=== PATIENT | female | born 1985 | race Two or more races ===

== ENCOUNTER 2017-12-03 20:08 | Emergency (ER) | payer OTHER ==
[~2017-12-03] VITALS: Ht 162.6 cm; Wt 71.6 kg
[~2017-12-03 20:08] MED LIST: CHRO1TAB7 PO; CLOT15CR5 TOP; COL100C PO; INSU100C10 SQ; LANTUS SQ; PHEN-824 PO
[2017-12-03] MEDS ORDERED: ACET1TAB12 PO (21:40)
[2017-12-03 22:46] VITALS: BP 119/71
== END 2017-12-03 22:50 | disposition home or self-care (01) ==
LOC: ER 20:08
DX: M25.531 Pain in right wrist (principal); J45.909 Unspecified asthma, uncomplicated; E11.9 Type 2 diabetes mellitus without complications; G89.29 Other chronic pain; Z87.442 Personal history of urinary calculi; Z90.49 Acquired absence of other specified parts of digestive tract; Z56.0 Unemployment, unspecified; Z88.8 Allergy status to other drugs, medicaments and biological substances; Z88.1 Allergy status to other antibiotic agents; Z91.013 Allergy to seafood; Z91.040 Latex allergy status; Z79.4 Long term (current) use of insulin; Z79.899 Other long term (current) drug therapy
CPT/HCPCS: 29125; 73110; 99284

== ENCOUNTER 2018-08-15 11:50 | Emergency (ER) | payer MEDICAID, OTHER ==
[~2018-08-15] VITALS: Ht 162.6 cm; Wt 86.0 kg
[~2018-08-15 11:50] MED LIST changes: +ACET1TAB12 PO; +METO-292 PO
[2018-08-15 13:16] LABS: URINE HCG NEGATIVE (NEG)
[2018-08-15 14:08] LABS: BASOPHILS # (AUTO) 0.1 X10'3 (0-0.2); BASOPHILS % (AUTO) 0.4 % (0-1); EOSINOPHILS # (AUTO) 0.3 X10'3 (0-0.9); HEMATOCRIT 42.1 % (35.0-45.0); HEMOGLOBIN 13.6 g/dl (12.0-16.0); LYMPHOCYTES # (AUTO) 3.8 X10'3 (1.1-4.8); LYMPHOCYTES % (AUTO) 24.2 % (21-51); MEAN CORPUSCULAR HEMOGLOBIN 26.7 PG (27.0-31.0); MEAN CORPUSCULAR HGB CONC 32.3 % (33.0-36.5); MEAN CORPUSCULAR VOLUME 82.9 FL (78-98); MEAN PLATELET VOLUME 8.7 FL (7.4-10.4); MONOCYTES # (AUTO) 0.7 X10'3 (0-0.9); MONOCYTES % (AUTO) 4.5 % (2-12); NEUTROPHILS # (AUTO) 10.7 X10'3 (1.8-7.7); NEUTROPHILS % (AUTO) 68.9 % (42-75); PLATELET COUNT 372 X10'3 (140-440); RED BLOOD COUNT 5.08 X10'6 (4.20-5.60); WHITE BLOOD COUNT 15.5 X10'3 (4.5-11.0)
[2018-08-15 14:23] LABS: ALANINE AMINOTRANSFERASE 18 U/L (12-78); ALBUMIN 3.6 G/DL (3.4-5.0); ALKALINE PHOSPHATASE 98 IU/L (46-116); ANION GAP 10 (8-16); ASPARTATE AMINO TRANSFERASE 11 U/L (10-37); BILIRUBIN,TOTAL 0.2 MG/DL (0.1-1.0); BLOOD UREA NITROGEN 4 MG/DL (7-18); BUN/CREATININE RATIO 5.9 (6.6-38.0); CALCIUM 9.4 MG/DL (8.5-10.1); CHLORIDE 104 MMOL/L (99-107); CREATININE 0.68 MG/DL (0.40-0.90); GLUCOSE 88 MG/DL (70-104); MAGNESIUM 1.8 MG/DL (1.5-2.4); SODIUM 142 MMOL/L (135-145); TOTAL CARBON DIOXIDE 28.2 MMOL/L (24-32); TOTAL PROTEIN 7.2 G/DL (6.4-8.2); eGFR > 90 ML/MIN
[2018-08-15 14:27] LABS: POTASSIUM 2.6 MMOL/L (3.5-5.1)
[2018-08-15] MEDS: potassium Cl 20 mEq SR tablet PO STA (14:45)
[2018-08-15] MEDS ORDERED: potassium 10mEq/100ml NS w/LIDOcaine (10mg/bag) IV SCH (16:00)
[2018-08-15] MEDS: magnesium oxide 400mg tablet PO ONE (16:21)
[2018-08-15] MEDS: ondansetron 4mg rapidly disintigrating tab PO ONE (16:22)
[2018-08-15] MEDS: potassium Cl 20 mEq SR tablet PO ONE (16:22)
[2018-08-15] MEDS: HYDROcodone/acetaminophen 5mg/325mg tablet PO ONE (16:23)
[2018-08-15 16:30] VITALS: BP 128/92
[2018-08-15] MEDS ORDERED: ONDA4TAB12 PO (16:45)
[2018-08-15] MEDS ORDERED: POTA10TA19 PO (16:45)
[2018-08-15] MEDS ORDERED: CYCL-1 PO (16:45)
== END 2018-08-15 17:04 | disposition home or self-care (01) ==
LOC: ER 11:50
DX: S00.83XA Contusion of other part of head, initial encounter (principal); E10.649 Type 1 diabetes mellitus with hypoglycemia without coma; M62.838 Other muscle spasm; J45.909 Unspecified asthma, uncomplicated; Z79.4 Long term (current) use of insulin; Z88.6 Allergy status to analgesic agent; Z88.1 Allergy status to other antibiotic agents; Z91.040 Latex allergy status; Z88.8 Allergy status to other drugs, medicaments and biological substances; Z91.013 Allergy to seafood; Z79.899 Other long term (current) drug therapy; Z87.442 Personal history of urinary calculi; Z90.49 Acquired absence of other specified parts of digestive tract; Z98.890 Other specified postprocedural states; Z90.89 Acquired absence of other organs; Z56.0 Unemployment, unspecified; Z98.84 Bariatric surgery status; W01.198A Fall on same level from slipping, tripping and stumbling with subsequent striking against other object, initial encounter; Y93.89 Activity, other specified; Y92.89 Other specified places as the place of occurrence of the external cause; Y99.8 Other external cause status
CPT/HCPCS: 36415; 70450; 80053; 81025; 82948; 83735; 85025; 99284; J3480

== ENCOUNTER 2018-10-21 16:15 | Emergency (ER) | payer BC ==
[~2018-10-21] VITALS: Ht 160 cm; Wt 88.0 kg
[~2018-10-21 16:15] MED LIST changes: +CYCL-1 PO; +ONDA4TAB12 PO
[2018-10-21 17:45] VITALS: BP 140/107
--- NOTE | 2018-10-21 17:46 | NUR ---
CHECKED PT'S VS SINCE PT HAS BEEN WAITING MORE THAN 1 HOUR. VS DOCUMENTED
[2018-10-21] MEDS ORDERED: HYDROcodone/acetaminophen 5mg/325mg tablet PO ONE (18:45)
[2018-10-21] MEDS ORDERED: ondansetron 4mg rapidly disintigrating tab PO ONE (18:45)
[2018-10-21] MEDS ORDERED: ACET-3067 PO (19:15)
== END 2018-10-21 19:35 | disposition home or self-care (01) ==
LOC: ER 16:15
DX: S09.90XA Unspecified injury of head, initial encounter (principal); R11.2 Nausea with vomiting, unspecified; M54.2 Cervicalgia; J45.909 Unspecified asthma, uncomplicated; E11.9 Type 2 diabetes mellitus without complications; G89.29 Other chronic pain; M54.9 Dorsalgia, unspecified; Z90.49 Acquired absence of other specified parts of digestive tract; Z56.0 Unemployment, unspecified; Z88.8 Allergy status to other drugs, medicaments and biological substances; Z88.6 Allergy status to analgesic agent; Z88.1 Allergy status to other antibiotic agents; Z91.040 Latex allergy status; Z91.013 Allergy to seafood; Z79.4 Long term (current) use of insulin; W18.30XA Fall on same level, unspecified, initial encounter; Y93.89 Activity, other specified; Y92.89 Other specified places as the place of occurrence of the external cause; Y99.8 Other external cause status
CPT/HCPCS: 70450; 99284

== ENCOUNTER 2018-12-05 11:07 | Emergency (ER) | payer BC, OTHER ==
[~2018-12-05] VITALS: Ht 162.6 cm; Wt 88.5 kg
[2018-12-05 12:17] LABS: BASOPHILS # (AUTO) 0.1 X10'3 (0-0.2); BASOPHILS % (AUTO) 0.4 % (0-1); EOSINOPHILS % (AUTO) 0.4 % (0-6); HEMATOCRIT 41.8 % (35.0-45.0); HEMOGLOBIN 13.6 g/dl (12.0-16.0); LYMPHOCYTES # (AUTO) 1.2 X10'3 (1.1-4.8); LYMPHOCYTES % (AUTO) 9.7 % (21-51); MEAN CORPUSCULAR HEMOGLOBIN 25.9 PG (27.0-31.0); MEAN CORPUSCULAR HGB CONC 32.4 g/dL (33.0-36.5); MONOCYTES # (AUTO) 0.5 X10'3 (0-0.9); MONOCYTES % (AUTO) 4.5 % (2-12); NEUTROPHILS # (AUTO) 10.2 X10'3 (1.8-7.7); PLATELET COUNT 309 X10'3 (140-440); RED BLOOD COUNT 5.22 X10'6 (4.20-5.60); RED CELL DISTRIBUTION WIDTH 14.9 % (11.5-14.5)
[2018-12-05 12:21] LABS: CLARITY,URINE SLIGHTLY CLOUDY (Clear); COLOR,URINE STRAW (Yellow); GLUCOSE, URINE >=1000 mg/dl (Neg); KETONES,URINE NEGATIVE (Neg); LEUKOCYTE ESTERASE ,URINE NEGATIVE (Neg); NITRITES, URINE NEGATIVE (Neg); OCCULT BLOOD,URINE NEGATIVE (Neg); PROTEIN,URINE NEGATIVE (Neg); UROBILINOGEN,URINE 0.2 E.U/dL (0.2-1.0)
[2018-12-05 12:23] LABS: URINE HCG NEGATIVE (NEG)
[2018-12-05 12:24] LABS: UA COLLECTION TYPE CLN CATCH MIDSTREAM
[2018-12-05 12:27] LABS: INR 0.9 INR; PROTHROMBIN TIME 9.5 SECONDS (9.0-12.0)
[2018-12-05 12:31] LABS: BACTERIA,URINE 4+ /HPF (Neg); RBC,URINE NONE SEEN /HPF (0-2); WBC,URINE 0-4 /HPF (0-4)
[2018-12-05 12:31] LABS: ALANINE AMINOTRANSFERASE 61 U/L (12-78); ALBUMIN 3.4 G/DL (3.4-5.0); ALBUMIN/GLOBULIN RATIO 0.9 (1.1-1.5); ALKALINE PHOSPHATASE 159 IU/L (46-116); ANION GAP 6 (8-16); ASPARTATE AMINO TRANSFERASE 60 U/L (10-37); BILIRUBIN,TOTAL 0.2 MG/DL (0.1-1.0); BLOOD UREA NITROGEN 5 MG/DL (7-18); BUN/CREATININE RATIO 6.3 (6.6-38.0); CHLORIDE 101 MMOL/L (99-107); GLUCOSE 378 MG/DL (70-104); LIPASE 192 U/L (73-393); POTASSIUM 4.8 MMOL/L (3.5-5.1); SODIUM 134 MMOL/L (135-145); TOTAL CARBON DIOXIDE 27.4 MMOL/L (24-32); TOTAL PROTEIN 7.2 G/DL (6.4-8.2); eGFR 82 ML/MIN
[2018-12-05 12:32] LABS: SQUAMOUS EPITHELIAL CELL,UR MANY /LPF (FEW)
[2018-12-05] MEDS ORDERED: normal saline 1000ML IV soln IVB ONE (13:10)
[2018-12-05] MEDS ORDERED: ondansetron/PF 4mg/2ml inj IV ONE ×2 (13:10→15:00)
[2018-12-05] MEDS ORDERED: morphine 4 MG/ML inj SYRINge IV PRN (13:10)
--- NOTE | 2018-12-05 13:25 | NUR ---
AMBULATORY TO ER #[id number] WITH C/O RIGHTSIDE ABD PAIN AND CONSTIPATION X 3 DAYS. STATES HX CONSTIPATION WITH PAINFUL, BLACK STOOL 2 DAYS AGO. HX MULTIPLE ABD SURGERIES, INCLUDING HERNIA REPAIRS AND GASTRIC BYPASS. ABD SOFT WITH STABBING PAIN.
[2018-12-05 13:47] VITALS: BP 124/80
[2018-12-05] MEDS ORDERED: HYDROcodone/acetaminophen 5mg/325mg tablet PO ONE (15:00)
== END 2018-12-05 15:38 | disposition home or self-care (01) ==
LOC: ER 11:07
DX: R10.11 Right upper quadrant pain (principal); E11.65 Type 2 diabetes mellitus with hyperglycemia; R11.2 Nausea with vomiting, unspecified; J45.909 Unspecified asthma, uncomplicated; G89.29 Other chronic pain; Z90.49 Acquired absence of other specified parts of digestive tract; Z90.89 Acquired absence of other organs; Z88.1 Allergy status to other antibiotic agents; Z88.6 Allergy status to analgesic agent; Z91.018 Allergy to other foods; Z88.8 Allergy status to other drugs, medicaments and biological substances; Z91.013 Allergy to seafood; Z79.4 Long term (current) use of insulin; Z79.899 Other long term (current) drug therapy; Z56.0 Unemployment, unspecified
CPT/HCPCS: 36415; 80053; 81001; 81025; 82948; 83690; 85025; 85610; 96361; 96374; 96375; 96376; 99283; J2270; J2405; J7030

== ENCOUNTER 2019-06-07 12:17 | Emergency (ER) | payer BC, OTHER ==
[~2019-06-07] VITALS: Ht 160 cm; Wt 86.4 kg
[2019-06-07] MEDS ORDERED: ketorolac tromethamine 15mg/ml inj. IV ONE (13:05)
[2019-06-07] MEDS ORDERED: normal saline 1000ML IV soln IVB ONE (13:05)
[2019-06-07] MEDS ORDERED: proCHLORperazine 10 MG/2 ml inj IV ONE (13:05)
[2019-06-07] MEDS ORDERED: diphenhydrAMINE 25mg capsule PO ONE (13:10)
[2019-06-07] MEDS ORDERED: ketorolac trometh. 30mg/ml inj. IM ONE (13:55)
[2019-06-07 14:39] VITALS: BP 172/116
== END 2019-06-07 14:41 | disposition home or self-care (01) ==
LOC: ER 12:18
DX: F07.81 Postconcussional syndrome (principal); J45.909 Unspecified asthma, uncomplicated; E11.9 Type 2 diabetes mellitus without complications; G89.29 Other chronic pain; F41.9 Anxiety disorder, unspecified; Z90.49 Acquired absence of other specified parts of digestive tract; Z98.890 Other specified postprocedural states; Z56.0 Unemployment, unspecified; Z88.1 Allergy status to other antibiotic agents; Z91.040 Latex allergy status; Z88.6 Allergy status to analgesic agent; Z91.013 Allergy to seafood; Z79.899 Other long term (current) drug therapy; Z79.4 Long term (current) use of insulin; V89.2XXA Person injured in unspecified motor-vehicle accident, traffic, initial encounter; Y93.89 Activity, other specified; Y92.488 Other paved roadways as the place of occurrence of the external cause; Y99.8 Other external cause status
CPT/HCPCS: 96372; 99283; J1885; Q0163

== ENCOUNTER 2019-08-07 09:52 | Emergency (ER) | payer SELFPAY ==
[~2019-08-07] VITALS: Ht 162.6 cm; Wt 94.0 kg
[2019-08-07 11:35] LABS: URINE HCG NEGATIVE (NEG)
[2019-08-07 11:43] LABS: BASOPHILS # (AUTO) 0.1 X10'3 (0-0.2); BASOPHILS % (AUTO) 0.6 % (0-1); EOSINOPHILS % (AUTO) 0 % (0-6); HEMOGLOBIN 12.7 g/dl (12.0-16.0); LYMPHOCYTES # (AUTO) 0.8 X10'3 (1.1-4.8); LYMPHOCYTES % (AUTO) 8.1 % (21-51); MEAN CORPUSCULAR HEMOGLOBIN 27.7 PG (27.0-31.0); MEAN CORPUSCULAR HGB CONC 32.5 g/dL (33.0-36.5); MEAN CORPUSCULAR VOLUME 85.2 FL (78-98); MEAN PLATELET VOLUME 7.7 FL (7.4-10.4); MONOCYTES # (AUTO) 0.5 X10'3 (0-0.9); MONOCYTES % (AUTO) 5.2 % (2-12); NEUTROPHILS % (AUTO) 86.1 % (42-75); PLATELET COUNT 289 X10'3 (140-440); RED BLOOD COUNT 4.58 X10'6 (4.20-5.60); RED CELL DISTRIBUTION WIDTH 14.9 % (11.5-14.5); WHITE BLOOD COUNT 10.5 X10'3 (4.5-11.0)
[2019-08-07 11:43] LABS: CLARITY,URINE CLEAR (Clear); COLOR,URINE YELLOW (Yellow); GLUCOSE, URINE >=1000 mg/dl (Neg); KETONES,URINE TRACE mg/dl (Neg); LEUKOCYTE ESTERASE ,URINE NEGATIVE (Neg); NITRITES, URINE POSITIVE (Neg); OCCULT BLOOD,URINE NEGATIVE (Neg); PROTEIN,URINE NEGATIVE (Neg); UROBILINOGEN,URINE 0.2 E.U/dL (0.2-1.0)
[2019-08-07 12:03] LABS: UA COLLECTION TYPE CLN CATCH MIDSTREAM
[2019-08-07 12:05] LABS: BACTERIA,URINE 3+ /HPF (Neg); RBC,URINE NONE SEEN /HPF (0-2); SQUAMOUS EPITHELIAL CELL,UR FEW /LPF (FEW); WBC,URINE 0-4 /HPF (0-4)
[2019-08-07 12:06] LABS: ALANINE AMINOTRANSFERASE 13 U/L (12-78); ALBUMIN 3.4 G/DL (3.4-5.0); ALBUMIN/GLOBULIN RATIO 0.9 (1.1-1.5); ALKALINE PHOSPHATASE 97 IU/L (46-116); ANION GAP 9 (8-16); ASPARTATE AMINO TRANSFERASE 13 U/L (10-37); BILIRUBIN,TOTAL 0.2 MG/DL (0.1-1.0); BLOOD UREA NITROGEN 5 MG/DL (7-18); BUN/CREATININE RATIO 8.3 (6.6-38.0); CALCIUM 8.5 MG/DL (8.5-10.1); CHLORIDE 102 MMOL/L (99-107); GLUCOSE 234 MG/DL (70-104); POTASSIUM 3.7 MMOL/L (3.5-5.1); SODIUM 138 MMOL/L (135-145); TOTAL CARBON DIOXIDE 26.9 MMOL/L (24-32); TOTAL PROTEIN 7.1 G/DL (6.4-8.2); eGFR > 90 ML/MIN
[2019-08-07 12:07] LABS: ETHANOL < 0.010 GM/DL (0.0-0.010)
[2019-08-07] MEDS ORDERED: metoclopramide 5 mg/ml inj IV ONE (12:10)
[2019-08-07] MEDS ORDERED: diphenhydrAMINE 50 mg/ml inj IV ONE (12:10)
[2019-08-07] MEDS ORDERED: normal saline 1000ML IV soln IVB ONE (12:10)
[2019-08-07] MEDS: ketorolac trometh. 30mg/ml inj. IV ONE ×4 (12:10→14:15)
[2019-08-07 12:58] LABS: URINE AMPHETAMINE SCREEN NEGATIVE (Neg); URINE BARBITUATE SCREEN NEGATIVE (Neg); URINE BENZODIAZEPINES SCREEN NEGATIVE (Neg); URINE CANNABINOID SCREEN NEGATIVE (Neg); URINE COCAINE SCREEN NEGATIVE (Neg); URINE METHADONE SCREEN NEGATIVE (Neg); URINE OPIATE SCREEN POSITIVE (Neg); URINE PHENCYCLIDINE SCREEN NEGATIVE (Neg)
[2019-08-07] MEDS ORDERED: diphenhydrAMINE 50 mg/ml inj IM ONE (13:25)
[2019-08-07] MEDS ORDERED: metoclopramide 5 mg/ml inj IM ONE (13:25)
[2019-08-07] MEDS: ketorolac trometh inj. 60 MG/2 ML VIAL IM ONE ×2 (13:48→14:15)
[2019-08-07] MEDS ORDERED: ketorolac trometh. 30mg/ml inj. IM ONE (14:20)
[2019-08-07 14:22] VITALS: BP 152/93
== END 2019-08-07 14:31 | disposition home or self-care (01) ==
LOC: ER 09:53
DX: G43.909 Migraine, unspecified, not intractable, without status migrainosus (principal); R10.84 Generalized abdominal pain; J45.909 Unspecified asthma, uncomplicated; E11.9 Type 2 diabetes mellitus without complications; G89.29 Other chronic pain; F41.9 Anxiety disorder, unspecified; Z87.442 Personal history of urinary calculi; Z90.49 Acquired absence of other specified parts of digestive tract; Z98.890 Other specified postprocedural states; Z98.84 Bariatric surgery status; Z56.0 Unemployment, unspecified; Z91.09 Other allergy status, other than to drugs and biological substances; Z91.040 Latex allergy status; Z88.6 Allergy status to analgesic agent; Z88.8 Allergy status to other drugs, medicaments and biological substances; Z91.013 Allergy to seafood; Z79.4 Long term (current) use of insulin; Z79.899 Other long term (current) drug therapy
CPT/HCPCS: 36415; 80053; 80305; 80320; 81001; 81025; 85025; 87077; 87088; 87186; 96372; 96374; 99283; J1200; J1885; J2765

== ENCOUNTER 2019-09-14 17:59 | Emergency (ER) | payer BC ==
[~2019-09-14] VITALS: Ht 162.6 cm; Wt 93.0 kg
[2019-09-14 18:11] VITALS: BP 175/103
== END 2019-09-14 20:54 | disposition home or self-care (01) ==
LOC: ER 18:01
DX: M67.441 Ganglion, right hand (principal); L02.511 Cutaneous abscess of right hand; J45.909 Unspecified asthma, uncomplicated; E11.9 Type 2 diabetes mellitus without complications; G89.29 Other chronic pain; F41.9 Anxiety disorder, unspecified; Z90.49 Acquired absence of other specified parts of digestive tract; Z98.84 Bariatric surgery status; Z98.890 Other specified postprocedural states; Z56.0 Unemployment, unspecified; Z87.442 Personal history of urinary calculi; Z88.1 Allergy status to other antibiotic agents; Z91.040 Latex allergy status; Z88.6 Allergy status to analgesic agent; Z91.013 Allergy to seafood; Z79.899 Other long term (current) drug therapy; Z79.4 Long term (current) use of insulin
CPT/HCPCS: 10060; 99283

== ENCOUNTER 2019-10-26 13:11 | Emergency (ER) | payer BC ==
[~2019-10-26] VITALS: Ht 162.6 cm; Wt 90.8 kg
[2019-10-26 15:28] LABS: URINE HCG NEGATIVE (NEG)
[2019-10-26 15:30] LABS: CLARITY,URINE CLEAR (Clear); COLOR,URINE YELLOW (Yellow); GLUCOSE, URINE >=1000 mg/dl (Neg); KETONES,URINE NEGATIVE (Neg); LEUKOCYTE ESTERASE ,URINE NEGATIVE (Neg); NITRITES, URINE NEGATIVE (Neg); OCCULT BLOOD,URINE NEGATIVE (Neg); PH,URINE 5.5 (4.8-8.0); PROTEIN,URINE NEGATIVE (Neg); UROBILINOGEN,URINE 0.2 E.U/dL (0.2-1.0)
[2019-10-26 15:35] LABS: UA COLLECTION TYPE CLN CATCH MIDSTREAM
[2019-10-26 15:36] LABS: BACTERIA,URINE NONE SEEN /HPF (Neg); MUCUS STRANDS FEW /LPF (Neg); RBC,URINE 0-2 /HPF (0-2); SQUAMOUS EPITHELIAL CELL,UR FEW /LPF (FEW); WBC,URINE NONE SEEN /HPF (0-4)
[2019-10-26] MEDS ORDERED: famotidine 20mg tablet PO ONE (15:45)
[2019-10-26] MEDS ORDERED: pantoprazole 40mg Tablet.DR PO ONE (15:45)
--- NOTE | 2019-10-26 16:15 | NUR ---
US at bedside
[2019-10-26 18:06] LABS: BASOPHILS # (AUTO) 0.1 X10'3 (0-0.2); EOSINOPHILS # (AUTO) 0.1 X10'3 (0-0.9); HEMOGLOBIN 13.2 g/dl (12.0-16.0); MONOCYTES # (AUTO) 0.5 X10'3 (0-0.9); RED CELL DISTRIBUTION WIDTH 14.2 % (11.5-14.5)
[2019-10-26 18:07] LABS: EOSINOPHILS % (AUTO) 1.3 % (0-6); HEMATOCRIT 39.1 % (35.0-45.0); LYMPHOCYTES # (AUTO) 2.2 X10'3 (1.1-4.8); LYMPHOCYTES % (AUTO) 20.5 % (21-51); MEAN CORPUSCULAR HEMOGLOBIN 27.8 PG (27.0-31.0); MEAN CORPUSCULAR HGB CONC 33.8 g/dL (33.0-36.5); MEAN CORPUSCULAR VOLUME 82.3 FL (78-98); MEAN PLATELET VOLUME 8.7 FL (7.4-10.4); MONOCYTES % (AUTO) 5.1 % (2-12); NEUTROPHILS # (AUTO) 7.6 X10'3 (1.8-7.7); NEUTROPHILS % (AUTO) 72.1 % (42-75); PLATELET COUNT 309 X10'3 (140-440); RED BLOOD COUNT 4.75 X10'6 (4.20-5.60); WHITE BLOOD COUNT 10.6 X10'3 (4.5-11.0)
[2019-10-26 18:21] LABS: ALANINE AMINOTRANSFERASE 16 U/L (12-78); ALBUMIN 3.6 G/DL (3.4-5.0); ALKALINE PHOSPHATASE 99 IU/L (46-116); ANION GAP 6 (8-16); ASPARTATE AMINO TRANSFERASE 11 U/L (10-37); BILIRUBIN,TOTAL 0.3 MG/DL (0.1-1.0); BLOOD UREA NITROGEN 7 MG/DL (7-18); BUN/CREATININE RATIO 9.2 (6.6-38.0); CALCIUM 9.3 MG/DL (8.5-10.1); CHLORIDE 106 MMOL/L (99-107); CREATININE 0.76 MG/DL (0.40-0.90); GLUCOSE 222 MG/DL (70-104); LIPASE 146 U/L (73-393); POTASSIUM 3.9 MMOL/L (3.5-5.1); SODIUM 140 MMOL/L (135-145); TOTAL CARBON DIOXIDE 28.3 MMOL/L (24-32); TOTAL PROTEIN 7.3 G/DL (6.4-8.2); eGFR 86 ML/MIN
[2019-10-26 18:35] VITALS: BP 167/94
== END 2019-10-26 18:37 | disposition home or self-care (01) ==
LOC: ER 13:11
DX: R10.11 Right upper quadrant pain (principal); R10.31 Right lower quadrant pain; J45.909 Unspecified asthma, uncomplicated; E11.9 Type 2 diabetes mellitus without complications; G89.29 Other chronic pain; Z98.890 Other specified postprocedural states; Z90.49 Acquired absence of other specified parts of digestive tract; Z98.84 Bariatric surgery status; Z88.6 Allergy status to analgesic agent; Z88.1 Allergy status to other antibiotic agents; Z91.040 Latex allergy status
CPT/HCPCS: 76775; 80053; 81001; 81025; 83690; 85025; 99284

== ENCOUNTER 2020-02-24 06:24 | Emergency (ER) | payer BC ==
[~2020-02-24] VITALS: Ht 160 cm; Wt 94.4 kg
[~2020-02-24 06:24] MED LIST changes: +CLOT15CR35 TOP; -CLOT15CR5 TOP
[2020-02-24] MEDS ORDERED: ACET-3067 PO (07:13)
[2020-02-24] MEDS ORDERED: CLIN-97 PO (07:13)
[2020-02-24 07:22] VITALS: BP 138/90
== END 2020-02-24 07:25 | disposition home or self-care (01) ==
LOC: ER 06:24
DX: K02.9 Dental caries, unspecified (principal); J45.909 Unspecified asthma, uncomplicated; E11.9 Type 2 diabetes mellitus without complications; G89.29 Other chronic pain; F41.9 Anxiety disorder, unspecified; Z98.0 Intestinal bypass and anastomosis status; Z90.49 Acquired absence of other specified parts of digestive tract; Z98.890 Other specified postprocedural states; Z88.6 Allergy status to analgesic agent; Z88.1 Allergy status to other antibiotic agents; Z91.040 Latex allergy status; Z88.5 Allergy status to narcotic agent; Z91.013 Allergy to seafood; Z79.2 Long term (current) use of antibiotics; Z79.899 Other long term (current) drug therapy
CPT/HCPCS: 99283

== ENCOUNTER 2020-06-03 12:50 | Emergency (ER) | payer BC ==
[~2020-06-03] VITALS: Ht 160 cm; Wt 88.2 kg
[~2020-06-03 12:50] MED LIST changes: +CLIN-97 PO
[2020-06-03] MEDS ORDERED: normal saline 1000ML IV soln IVB ONE (13:25)
[2020-06-03] MEDS ORDERED: ondansetron/PF 4mg/2ml inj IV ONE (13:25)
[2020-06-03 14:49] LABS: BASOPHILS # (AUTO) 0.1 X10'3 (0-0.2); BASOPHILS % (AUTO) 0.5 % (0-1); EOSINOPHILS # (AUTO) 0.1 X10'3 (0-0.9); EOSINOPHILS % (AUTO) 0.9 % (0-6); HEMATOCRIT 40.2 % (35.0-45.0); HEMOGLOBIN 12.7 g/dl (12.0-16.0); LYMPHOCYTES # (AUTO) 2.6 X10'3 (1.1-4.8); LYMPHOCYTES % (AUTO) 22.1 % (21-51); MEAN CORPUSCULAR HEMOGLOBIN 25.7 PG (27.0-31.0); MEAN CORPUSCULAR HGB CONC 31.6 g/dL (33.0-36.5); MEAN CORPUSCULAR VOLUME 81.3 FL (78-98); MEAN PLATELET VOLUME 8.8 FL (7.4-10.4); MONOCYTES # (AUTO) 0.8 X10'3 (0-0.9); MONOCYTES % (AUTO) 6.5 % (2-12); NEUTROPHILS # (AUTO) 8.1 X10'3 (1.8-7.7); PLATELET COUNT 360 X10'3 (140-440); RED BLOOD COUNT 4.94 X10'6 (4.20-5.60); RED CELL DISTRIBUTION WIDTH 14.5 % (11.5-14.5); WHITE BLOOD COUNT 11.6 X10'3 (4.5-11.0)
[2020-06-03 15:04] LABS: ALANINE AMINOTRANSFERASE 20 U/L (12-78); ALBUMIN 3.2 G/DL (3.4-5.0); ALBUMIN/GLOBULIN RATIO 0.8 (1.1-1.5); ALKALINE PHOSPHATASE 143 IU/L (46-116); ANION GAP 5 (8-16); ASPARTATE AMINO TRANSFERASE 12 U/L (10-37); BILIRUBIN,TOTAL 0.2 MG/DL (0.1-1.0); BLOOD UREA NITROGEN 9 MG/DL (7-18); BUN/CREATININE RATIO 11.3 (6.6-38.0); CALCIUM 8.4 MG/DL (8.5-10.1); CHLORIDE 104 MMOL/L (99-107); GLUCOSE 206 MG/DL (70-104); POTASSIUM 3.8 MMOL/L (3.5-5.1); SODIUM 138 MMOL/L (135-145); TOTAL CARBON DIOXIDE 29.4 MMOL/L (24-32); eGFR 81 ML/MIN
[2020-06-03] MEDS ORDERED: ONDA4TAB6 PO (15:30)
[2020-06-03 16:17] VITALS: BP 134/88
== END 2020-06-03 16:20 | disposition home or self-care (01) ==
LOC: ER 12:51
DX: R11.2 Nausea with vomiting, unspecified (principal); R19.7 Diarrhea, unspecified; Z20.828 Contact with and (suspected) exposure to other viral communicable diseases; J45.909 Unspecified asthma, uncomplicated; G89.29 Other chronic pain; F41.9 Anxiety disorder, unspecified; E11.9 Type 2 diabetes mellitus without complications; Z87.442 Personal history of urinary calculi; Z90.49 Acquired absence of other specified parts of digestive tract; Z98.890 Other specified postprocedural states; Z88.1 Allergy status to other antibiotic agents; Z91.040 Latex allergy status; Z88.8 Allergy status to other drugs, medicaments and biological substances; Z79.899 Other long term (current) drug therapy
CPT/HCPCS: 36415; 80053; 85025; 85651; 87635; 96361; 96374; 99283; J2405; J7030

== ENCOUNTER 2020-08-11 03:44 | Emergency (ER) | payer BC ==
[~2020-08-11] VITALS: Ht 160 cm; Wt 90.9 kg
[~2020-08-11 03:44] MED LIST changes: +ONDA4TAB6 PO
[2020-08-11 03:59] VITALS: BP 138/99
== END 2020-08-11 05:11 | disposition home or self-care (01) ==
LOC: ER 03:45
DX: R05 Cough (principal); R06.02 Shortness of breath; J45.909 Unspecified asthma, uncomplicated; Z87.442 Personal history of urinary calculi; E11.9 Type 2 diabetes mellitus without complications; G89.29 Other chronic pain; M54.9 Dorsalgia, unspecified; F41.9 Anxiety disorder, unspecified; Z79.899 Other long term (current) drug therapy; Z98.84 Bariatric surgery status; Z88.6 Allergy status to analgesic agent; Z91.040 Latex allergy status; Z88.1 Allergy status to other antibiotic agents; Z88.8 Allergy status to other drugs, medicaments and biological substances
CPT/HCPCS: 71045; 99283

== ENCOUNTER 2021-01-22 18:07 | Emergency (ER) | payer BC ==
[~2021-01-22] VITALS: Ht 162.6 cm; Wt 90.0 kg
[2021-01-22] MEDS ORDERED: morphine 4 MG/ML inj SYRINge IV PRN (19:15)
[2021-01-22] MEDS ORDERED: ondansetron/PF 4mg/2ml inj IV ONE (19:15)
[2021-01-22] MEDS ORDERED: normal saline 1000ML IV soln IVB ONE (19:15)
[2021-01-22 19:41] LABS: BASOPHILS # (AUTO) 0.1 X10'3 (0-0.2); BASOPHILS % (AUTO) 0.7 % (0-1); EOSINOPHILS # (AUTO) 0.1 X10'3 (0-0.9); EOSINOPHILS % (AUTO) 1.1 % (0-6); HEMATOCRIT 42.3 % (35.0-45.0); LYMPHOCYTES # (AUTO) 3.6 X10'3 (1.1-4.8); LYMPHOCYTES % (AUTO) 29.2 % (21-51); MEAN CORPUSCULAR HEMOGLOBIN 27.9 PG (27.0-31.0); MEAN CORPUSCULAR HGB CONC 33.2 g/dL (33.0-36.5); MEAN CORPUSCULAR VOLUME 84.2 FL (78-98); MEAN PLATELET VOLUME 9.4 FL (7.4-10.4); MONOCYTES # (AUTO) 0.8 X10'3 (0-0.9); MONOCYTES % (AUTO) 6.6 % (2-12); NEUTROPHILS # (AUTO) 7.7 X10'3 (1.8-7.7); NEUTROPHILS % (AUTO) 62.4 % (42-75); PLATELET COUNT 314 X10'3 (140-440); RED BLOOD COUNT 5.02 X10'6 (4.20-5.60); RED CELL DISTRIBUTION WIDTH 15.3 % (11.5-14.5); WHITE BLOOD COUNT 12.4 X10'3 (4.5-11.0)
[2021-01-22 19:58] LABS: ALANINE AMINOTRANSFERASE 32 U/L (12-78); ALBUMIN 3.3 G/DL (3.4-5.0); ALBUMIN/GLOBULIN RATIO 0.8 (1.1-1.5); ALKALINE PHOSPHATASE 116 IU/L (46-116); ANION GAP 14 (8-16); ASPARTATE AMINO TRANSFERASE 29 U/L (10-37); BILIRUBIN,TOTAL 0.2 MG/DL (0.1-1.0); BLOOD UREA NITROGEN 7 MG/DL (7-18); BUN/CREATININE RATIO 9.3 (6.6-38.0); CALCIUM 8.7 MG/DL (8.5-10.1); CHLORIDE 106 MMOL/L (99-107); CREATININE 0.75 MG/DL (0.40-0.90); GLUCOSE 154 MG/DL (70-104); LIPASE 118 U/L (73-393); POTASSIUM 3.4 MMOL/L (3.5-5.1); SODIUM 146 MMOL/L (135-145); TOTAL CARBON DIOXIDE 26.5 MMOL/L (24-32); TOTAL PROTEIN 7.2 G/DL (6.4-8.2); eGFR 87 ML/MIN
[2021-01-22 20:40] LABS: URINE HCG NEGATIVE (NEG)
[2021-01-22 20:50] LABS: UA COLLECTION TYPE CLN CATCH MIDSTREAM
[2021-01-22 20:51] LABS: CLARITY,URINE CLOUDY (Clear); COLOR,URINE RED (Yellow)
[2021-01-22 20:54] LABS: BACTERIA,URINE FEW /HPF (Neg); RBC,URINE TNTC /HPF (0-2); SQUAMOUS EPITHELIAL CELL,UR FEW /LPF (FEW)
[2021-01-22] MEDS ORDERED: ONDA4TAB6 PO (21:15)
[2021-01-22 21:25] VITALS: BP 133/98
== END 2021-01-22 21:33 | disposition home or self-care (01) ==
LOC: ER 18:08
DX: R10.12 Left upper quadrant pain (principal); J45.909 Unspecified asthma, uncomplicated; E11.9 Type 2 diabetes mellitus without complications; G89.29 Other chronic pain; F41.9 Anxiety disorder, unspecified; Z87.442 Personal history of urinary calculi; Z90.49 Acquired absence of other specified parts of digestive tract; Z98.890 Other specified postprocedural states; Z90.89 Acquired absence of other organs; Z88.6 Allergy status to analgesic agent; Z88.8 Allergy status to other drugs, medicaments and biological substances; Z91.040 Latex allergy status; Z91.013 Allergy to seafood; Z79.2 Long term (current) use of antibiotics; Z79.899 Other long term (current) drug therapy
CPT/HCPCS: 36415; 80053; 81001; 81025; 83690; 85025; 87077; 87088; 87186; 96361; 96374; 96375; 99284; J2270; J2405; J7030

== ENCOUNTER 2021-11-03 04:30 | Emergency (ER) | payer BC ==
[~2021-11-03] VITALS: Ht 160 cm; Wt 90.0 kg
[2021-11-03 04:38] VITALS: BP 136/71
[2021-11-03] MEDS ORDERED: loperamide 2mg capsule PO ONE (06:15)
[2021-11-03] MEDS ORDERED: ondansetron 4mg rapidly disintigrating tab PO ONE (06:15)
== END 2021-11-03 06:48 | disposition home or self-care (01) ==
LOC: ER 04:30
DX: B34.9 Viral infection, unspecified (principal); Z20.822 Contact with and (suspected) exposure to COVID-19; R19.7 Diarrhea, unspecified; G43.909 Migraine, unspecified, not intractable, without status migrainosus; J45.909 Unspecified asthma, uncomplicated; E11.9 Type 2 diabetes mellitus without complications; G89.29 Other chronic pain; Z87.19 Personal history of other diseases of the digestive system; Z86.19 Personal history of other infectious and parasitic diseases; Z90.49 Acquired absence of other specified parts of digestive tract; Z98.891 History of uterine scar from previous surgery; Z98.84 Bariatric surgery status; Z98.890 Other specified postprocedural states; Z88.8 Allergy status to other drugs, medicaments and biological substances; Z88.1 Allergy status to other antibiotic agents; Z88.6 Allergy status to analgesic agent; Z91.040 Latex allergy status; Z91.013 Allergy to seafood; Z79.899 Other long term (current) drug therapy
CPT/HCPCS: 87635; 99283; C9803

== ENCOUNTER 2022-06-14 08:22 | Emergency (ER) | payer BC ==
[~2022-06-14] VITALS: Ht 160 cm; Wt 93.2 kg
[2022-06-14] MEDS ORDERED: normal saline 1000ML IV soln IVB ONE (09:40)
[2022-06-14] MEDS ORDERED: morphine 4 MG/ML inj SYRINge IV ONE (09:40)
[2022-06-14] MEDS ORDERED: famotidine/PF 10 mg/ml inj IV ONE (09:40)
[2022-06-14] MEDS ORDERED: ondansetron/PF 4mg/2ml inj IV ONE (09:40)
[2022-06-14 10:09] LABS: BASOPHILS # (AUTO) 0.1 X10'3 (0-0.2); BASOPHILS % (AUTO) 0.4 % (0-1); EOSINOPHILS # (AUTO) 0.1 X10'3 (0-0.9); EOSINOPHILS % (AUTO) 0.4 % (0-6); HEMATOCRIT 37.6 % (35.0-45.0); HEMOGLOBIN 12.3 g/dl (12.0-16.0); LYMPHOCYTES # (AUTO) 1.4 X10'3 (1.1-4.8); LYMPHOCYTES % (AUTO) 9.5 % (21-51); MEAN CORPUSCULAR HGB CONC 32.7 g/dL (33.0-36.5); MEAN CORPUSCULAR VOLUME 82.6 FL (78-98); MEAN PLATELET VOLUME 8.8 FL (7.4-10.4); MONOCYTES # (AUTO) 0.9 X10'3 (0-0.9); MONOCYTES % (AUTO) 5.8 % (2-12); NEUTROPHILS # (AUTO) 12.5 X10'3 (1.8-7.7); NEUTROPHILS % (AUTO) 83.9 % (42-75); PLATELET COUNT 294 X10'3 (140-440); RED BLOOD COUNT 4.55 X10'6 (4.20-5.60); RED CELL DISTRIBUTION WIDTH 14.5 % (11.5-14.5); WHITE BLOOD COUNT 14.9 X10'3 (4.5-11.0)
[2022-06-14 10:24] LABS: ALANINE AMINOTRANSFERASE 22 U/L (12-78); ALBUMIN 2.7 G/DL (3.4-5.0); ALBUMIN/GLOBULIN RATIO 0.9 (1.1-1.5); ALKALINE PHOSPHATASE 143 IU/L (46-116); ANION GAP 8 (8-16); ASPARTATE AMINO TRANSFERASE 15 U/L (10-37); BILIRUBIN,TOTAL 0.4 MG/DL (0.1-1.0); BLOOD UREA NITROGEN 9 MG/DL (7-18); BUN/CREATININE RATIO 11.1 (6.6-38.0); CALCIUM 8.1 MG/DL (8.5-10.1); CHLORIDE 100 MMOL/L (99-107); CREATININE 0.81 MG/DL (0.40-0.90); GLUCOSE 277 MG/DL (70-104); LIPASE < 50 U/L (73-393); POTASSIUM 4.2 MMOL/L (3.5-5.1); SODIUM 134 MMOL/L (135-145); TOTAL CARBON DIOXIDE 25.8 MMOL/L (24-32); TOTAL PROTEIN 5.7 G/DL (6.4-8.2); eGFR 79 ML/MIN
[2022-06-14] MEDS ORDERED: ceFOXitin 1 GM/D5W 50mL IVPB 1,000 GM in normal saline 100ml IV soln 100 ML IV ONE (11:20)
[2022-06-14] MEDS ORDERED: ceFOXitin inj 1,000 MG in normal saline 100ml IV soln 100 ML IV ONE (11:27)
[2022-06-14] MEDS ORDERED: iohexol 300mg/ml 100ml inj. ONE (11:45)
[2022-06-14 12:11] LABS: CLARITY,URINE SLIGHTLY CLOUDY (Clear); COLOR,URINE YELLOW (Yellow); GLUCOSE, URINE >=1000 mg/dl (Neg); KETONES,URINE NEGATIVE (Neg); LEUKOCYTE ESTERASE ,URINE NEGATIVE (Neg); NITRITES, URINE NEGATIVE (Neg); OCCULT BLOOD,URINE NEGATIVE (Neg); PROTEIN,URINE NEGATIVE (Neg); UROBILINOGEN,URINE 0.2 E.U/dL (0.2-1.0)
[2022-06-14 12:12] LABS: UA COLLECTION TYPE CLN CATCH MIDSTREAM; URINE HCG NEGATIVE (NEG)
[2022-06-14 12:22] LABS: MUCUS STRANDS FEW /LPF (Neg); SQUAMOUS EPITHELIAL CELL,UR MODERATE /LPF (FEW)
[2022-06-14 12:23] LABS: BACTERIA,URINE 2+ /HPF (Neg); YEAST FEW /HPF (NEGATIVE)
[2022-06-14 12:24] LABS: RBC,URINE 0-2 /HPF (0-2)
[2022-06-14] MEDS ORDERED: MESSAGE TO NURSING PO NR (12:55)
[2022-06-14 13:40] VITALS: BP 134/86
[2022-06-14] MEDS ORDERED: OXYC5CAP19 PO (14:05)
[2022-06-14] MEDS ORDERED: FAMO40TA73 PO (14:05)
[2022-06-14] MEDS ORDERED: ONDA4TAB12 PO (14:05)
[2022-06-14] MEDS ORDERED: OXYC-481 PO (16:15)
== END 2022-06-14 14:25 | disposition home or self-care (01) ==
LOC: ER 08:22
DX: K59.00 Constipation, unspecified (principal); R10.9 Unspecified abdominal pain; J45.909 Unspecified asthma, uncomplicated; G89.29 Other chronic pain; M54.9 Dorsalgia, unspecified; F31.9 Bipolar disorder, unspecified; Z98.890 Other specified postprocedural states; Z88.6 Allergy status to analgesic agent; Z88.1 Allergy status to other antibiotic agents; Z79.899 Other long term (current) drug therapy; Z91.040 Latex allergy status
CPT/HCPCS: 36415; 71045; 74177; 80053; 81001; 81025; 83605; 83690; 85025; 87040; 87077; 87088; 87186; 96361; 96365; 96375; 99285; J0694; J2270; J2405; J3490; J7030; Q9967

== ENCOUNTER 2023-02-19 15:27 | Inpatient (IN) | payer BC ==
[~2023-02-19] VITALS: Ht 162.6 cm; Wt 86.8 kg
[~2023-02-19 15:27] MED LIST changes: +FAMO40TA73 PO; +OXYC5CAP19 PO
[2023-02-19 15:49] LABS: URINE HCG NEGATIVE (NEG)
[2023-02-19 16:04] LABS: CLARITY,URINE CLOUDY (Clear); COLOR,URINE YELLOW (Yellow); GLUCOSE, URINE >=1000 mg/dl (Neg); KETONES,URINE NEGATIVE (Neg); LEUKOCYTE ESTERASE ,URINE NEGATIVE (Neg); NITRITES, URINE NEGATIVE (Neg); OCCULT BLOOD,URINE NEGATIVE (Neg); PH,URINE 5.5 (4.8-8.0); PROTEIN,URINE NEGATIVE (Neg); UROBILINOGEN,URINE 0.2 E.U/dL (0.2-1.0)
[2023-02-19 16:09] LABS: UA COLLECTION TYPE CLN CATCH MIDSTREAM
[2023-02-19 16:11] LABS: BACTERIA,URINE 2+ /HPF (Neg); RBC,URINE 0-2 /HPF (0-2)
[2023-02-19 16:12] LABS: SQUAMOUS EPITHELIAL CELL,UR MANY /LPF (FEW); WBC,URINE 0-4 /HPF (0-4)
[2023-02-19 16:13] LABS: WBC CLUMPS,URINE MODERATE /HPF (NEGATIVE); YEAST MODERATE /HPF (NEGATIVE)
[2023-02-19 16:28] LABS: BASOPHILS # (AUTO) 0.1 X10'3 (0-0.2); BASOPHILS % (AUTO) 0.3 % (0-1); EOSINOPHILS # (AUTO) 0.1 X10'3 (0-0.9); EOSINOPHILS % (AUTO) 0.4 % (0-6); HEMATOCRIT 44.4 % (35.0-45.0); HEMOGLOBIN 14.2 g/dl (12.0-16.0); LYMPHOCYTES # (AUTO) 1.4 X10'3 (1.1-4.8); LYMPHOCYTES % (AUTO) 8.2 % (21-51); MEAN CORPUSCULAR HEMOGLOBIN 24.8 PG (27.0-31.0); MEAN CORPUSCULAR HGB CONC 31.9 g/dL (33.0-36.5); MEAN CORPUSCULAR VOLUME 77.6 FL (78-98); MEAN PLATELET VOLUME 8.9 FL (7.4-10.4); MONOCYTES # (AUTO) 0.9 X10'3 (0-0.9); MONOCYTES % (AUTO) 5.4 % (2-12); NEUTROPHILS # (AUTO) 14.8 X10'3 (1.8-7.7); NEUTROPHILS % (AUTO) 85.7 % (42-75); PLATELET COUNT 352 X10'3 (140-440); RED BLOOD COUNT 5.73 X10'6 (4.20-5.60); RED CELL DISTRIBUTION WIDTH 15.4 % (11.5-14.5); WHITE BLOOD COUNT 17.2 X10'3 (4.5-11.0)
[2023-02-19 16:46] LABS: ALANINE AMINOTRANSFERASE 24 U/L (12-78); ALBUMIN 3.9 G/DL (3.4-5.0); ALBUMIN/GLOBULIN RATIO 0.9 (1.1-1.5); ALKALINE PHOSPHATASE 171 IU/L (46-116); ANION GAP 10 (8-16); ASPARTATE AMINO TRANSFERASE 15 U/L (10-37); BILIRUBIN,TOTAL 0.4 MG/DL (0.1-1.0); BLOOD UREA NITROGEN 5 MG/DL (7-18); BUN/CREATININE RATIO 5.6 (10.0-20.0); CALCIUM 9.7 MG/DL (8.5-10.1); CHLORIDE 98 MMOL/L (99-107); GLUCOSE 414 MG/DL (70-104); LIPASE 141 U/L (73-393); POTASSIUM 4.2 MMOL/L (3.5-5.1); SODIUM 133 MMOL/L (135-145); TOTAL CARBON DIOXIDE 25.3 MMOL/L (24-32); TOTAL PROTEIN 8.1 G/DL (6.4-8.2); eGFR 70 ML/MIN
[2023-02-19] MEDS ORDERED: pantoprazole 40 MG vial IV ONE (17:05)
[2023-02-19] MEDS ORDERED: normal saline 1000ML IV soln IVB ONE (17:05)
[2023-02-19] MEDS ORDERED: pantoprazole 40MG/NS 100ML BAG 100 ML IV ONE (17:25)
[2023-02-19] MEDS: simethicone 125mg capsule PO SCH (17:54)
[2023-02-19] MEDS ORDERED: morphine 4 MG/ML inj SYRINge IV ONE (18:30)
[2023-02-19] MEDS ORDERED: ondansetron/PF 4mg/2ml inj IV ONE (18:55)
[2023-02-19] MEDS ORDERED: potassium Cl 20 mEq SR tablet PO PRN ×3 (20:00→20:15)
[2023-02-19] MEDS ORDERED: ondansetron/PF 4mg/2ml inj IV PRN ×2 (20:00→20:15)
[2023-02-19] MEDS ORDERED: magnesium 4gm in 100ml NS 100 ML IV PRN ×2 (20:00→20:15)
[2023-02-19] MEDS ORDERED: potassium Cl 40MEQ/1/2NS 520ml 520 ML IV PRN ×2 (20:00→20:15)
[2023-02-19] MEDS ORDERED: acetaminophen 325mg tablet PO PRN ×3 (20:00→20:15)
[2023-02-19] MEDS ORDERED: magnesium Cl slow-release 64mg tablet PO PRN ×2 (20:00→20:15)
[2023-02-19] MEDS ORDERED: magnesium hydroxide 30ml (MOM) UD suspension PO PRN (20:00)
[2023-02-19] MEDS ORDERED: K and/or MAG REPLACEMENT MC SCH (20:00)
[2023-02-19] MEDS ORDERED: magnesium 2GM in 50ml NS 50 ML IV PRN ×2 (20:00→20:15)
[2023-02-19] MEDS ORDERED: docusate sod 100mg capsule PO SCH (20:00)
[2023-02-19] MEDS ORDERED: mag hydrox/Alum hydrox/simeth 30ml oral suspension PO PRN (20:00)
[2023-02-19] MEDS ORDERED: HYDROcodone/acetaminophen 5mg/325mg tablet PO PRN (20:15)
[2023-02-19] MEDS ORDERED: HYDROcodone/acetaminophen 10/325mg tab PO PRN (20:15)
[2023-02-19] MEDS ORDERED: morphine 2 MG/ML inj. syringe IV PRN (20:15)
[2023-02-19] MEDS ORDERED: methylnaltrexone br 12mg/0.6ml inj***SubQ only SQ PRN (20:20)
[2023-02-19] MEDS: diatr meglu/diatrizoate 30ml oral sol.-(3 dose) bottle PO SCH ×2 (20:27→21:44)
[2023-02-19] MEDS: normal saline 1000ml 1,000 ML IV SCH (20:43)
[2023-02-19] MEDS ORDERED: iohexol 300mg/ml 100ml inj. ONE (21:27)
[2023-02-19] MEDS ORDERED: glucagon, human recombinant 1mg kit SUBCUT PRN (22:05)
[2023-02-19] MEDS ORDERED: MESSAGE TO PHARMACY PO ONE (22:05)
[2023-02-19] MEDS ORDERED: dextrose 50%-water 50ml dispensing syringe IV PRN ×2 (22:05)
[2023-02-19] MEDS ORDERED: insulin Lispro (HumaLOG) vial - multi-dose SQ SCH (22:05)
[2023-02-19] MEDS ORDERED: DEXTROSE 15 GM of carb/4 tabs (each vial/BOTTLE has 4 tablets) PO PRN ×2 (22:05)
--- NOTE | 2023-02-19 22:15 | NUR ---
Received pt from er via adalberto, oriented to room and routine, amb to bathroom and bed. Received report from [employer]TER [employer]ER, bg [id number] no insulin orders, states will call and obtain orders. Addendum: 02/19/23 at 2229 by Neha Villafuerte RN Amended: Links added.
[2023-02-19] MEDS: morphine 2 MG/ML inj. syringe IV PRN (22:48)
[2023-02-19 23:00] VITALS: BP 129/76
[2023-02-19] MEDS ORDERED: ZOLP5TAB2 PO (23:02)
[2023-02-19] MEDS ORDERED: VENL150C4 PO (23:07)
[2023-02-19] MEDS ORDERED: DULA3PEN SQ (23:08)
[2023-02-19] MEDS ORDERED: EMPA10TA PO (23:09)
[2023-02-19] MEDS ORDERED: METF625T PO (23:14)
[2023-02-19] MEDS: insulin glargine (Lantus) pen - multi-dose SQ SCH (23:43)
[2023-02-19] MEDS: zolpidem 5mg tablet PO SCH (23:46)
[2023-02-20] MEDS: morphine 2 MG/ML inj. syringe IV PRN ×5 (02:34→21:33)
[2023-02-20 05:05] LABS: BASOPHILS % (AUTO) 0.4 % (0-1); EOSINOPHILS # (AUTO) 0.1 X10'3 (0-0.9); EOSINOPHILS % (AUTO) 1.3 % (0-6); HEMATOCRIT 33.5 % (35.0-45.0); HEMOGLOBIN 10.8 g/dl (12.0-16.0); LYMPHOCYTES # (AUTO) 2.3 X10'3 (1.1-4.8); LYMPHOCYTES % (AUTO) 20.1 % (21-51); MEAN CORPUSCULAR HEMOGLOBIN 24.9 PG (27.0-31.0); MEAN CORPUSCULAR HGB CONC 32.3 g/dL (33.0-36.5); MEAN PLATELET VOLUME 9.2 FL (7.4-10.4); MONOCYTES # (AUTO) 0.9 X10'3 (0-0.9); MONOCYTES % (AUTO) 7.5 % (2-12); NEUTROPHILS % (AUTO) 70.7 % (42-75); PLATELET COUNT 262 X10'3 (140-440); RED BLOOD COUNT 4.35 X10'6 (4.20-5.60); RED CELL DISTRIBUTION WIDTH 15.4 % (11.5-14.5); WHITE BLOOD COUNT 11.3 X10'3 (4.5-11.0)
[2023-02-20 05:27] LABS: ALANINE AMINOTRANSFERASE 16 U/L (12-78); ALBUMIN 2.5 G/DL (3.4-5.0); ALBUMIN/GLOBULIN RATIO 0.9 (1.1-1.5); ALKALINE PHOSPHATASE 106 IU/L (46-116); ANION GAP 7 (8-16); ASPARTATE AMINO TRANSFERASE 15 U/L (10-37); BILIRUBIN,TOTAL 0.3 MG/DL (0.1-1.0); BLOOD UREA NITROGEN 5 MG/DL (7-18); BUN/CREATININE RATIO 8.2 (10.0-20.0); CALCIUM 7.8 MG/DL (8.5-10.1); CHLORIDE 104 MMOL/L (99-107); CREATININE 0.61 MG/DL (0.40-0.90); GLUCOSE 257 MG/DL (70-104); MAGNESIUM 1.6 MG/DL (1.5-2.4); POTASSIUM 3.7 MMOL/L (3.5-5.1); SODIUM 137 MMOL/L (135-145); TOTAL CARBON DIOXIDE 25.8 MMOL/L (24-32); TOTAL PROTEIN 5.4 G/DL (6.4-8.2); eGFR > 90 ML/MIN
[2023-02-20 06:00] VITALS: BP 105/68
[2023-02-20] MEDS: normal saline 1000ml 1,000 ML IV SCH ×3 (06:20→21:06)
--- NOTE | 2023-02-20 06:29 | NUR ---
Patient in room ORTHO 4012. I have received report from Neha and had the opportunity to ask questions and assume patient care.
--- NOTE | 2023-02-20 06:37 | NUR ---
Problems reprioritized. Patient report given, questions answered & plan of care reviewed with CESAR Merrill. Addendum: 02/20/23 at 0637 by Neha Villafuerte RN Amended: Links added. Addendum: 02/20/23 at 0639 by Neha Villafuerte RN Problems reprioritized. Patient report given, questions answered & plan of care reviewed with AMADEO Merrill.
[2023-02-20] MEDS: CefTRIAXone 2gm/D5W 50ml BAG 50 ML IV SCH (07:47)
[2023-02-20] MEDS: pantoprazole 40mg Tablet.DR PO SCH (07:47)
[2023-02-20] MEDS: EMPAGLIFLOZIN 10 MG TABLET PO SCH (07:47)
[2023-02-20] MEDS: venlafaxine XR 75mg capsule (Q24H) PO SCH (07:47)
[2023-02-20] MEDS: diatr meglu/diatrizoate 30ml oral sol.-(3 dose) bottle PO SCH ×3 (09:36→15:13)
[2023-02-20 10:00] VITALS: BP 133/91
--- NOTE | 2023-02-20 13:18 | NUR ---
RE: Tete, in 749, pt received distressing news, feels like she's having a panic attack, can we have something to help calm her? Desirae [id number]
[2023-02-20] MEDS: LORazepam 1 MG tablet PO PRN ×2 (13:27→20:08)
[2023-02-20] MEDS: simethicone 125mg capsule PO SCH (17:23)
[2023-02-20 18:30] VITALS: BP 153/100
--- NOTE | 2023-02-20 18:30 | NUR ---
Patient in room ORTHO 4012. I have received report from AMADEO Merrill and had the opportunity to ask questions and assume patient care. Addendum: 02/20/23 at 1841 by Neha Villafuerte RN Amended: Links added.
--- NOTE | 2023-02-20 18:37 | NUR ---
Problems reprioritized. Patient report given, questions answered & plan of care reviewed with Neha.
[2023-02-20] MEDS ORDERED: enoxaparin 40mg/0.4ml syringe SQ SCH (20:00)
[2023-02-20] MEDS: zolpidem 5mg tablet PO SCH (21:34)
[2023-02-20] MEDS: insulin glargine (Lantus) pen - multi-dose SQ SCH (21:35)
[2023-02-20 22:00] VITALS: BP 129/50
[2023-02-21] MEDS: morphine 2 MG/ML inj. syringe IV PRN ×3 (01:39→10:17)
[2023-02-21] MEDS: LORazepam 1 MG tablet PO PRN ×2 (01:42→05:40)
[2023-02-21] MEDS: normal saline 1000ml 1,000 ML IV SCH (05:40)
[2023-02-21 06:00] VITALS: BP 132/94
--- NOTE | 2023-02-21 06:06 | NUR ---
Problems reprioritized. Patient report given, questions answered & plan of care reviewed with CESAR Charles. Addendum: 02/21/23 at 0607 by Neha Villafuerte RN Amended: Links added.
[2023-02-21] MEDS: CefTRIAXone 2gm/D5W 50ml BAG 50 ML IV SCH (06:30)
[2023-02-21 06:39] LABS: BASOPHILS % (AUTO) 0.4 % (0-1); EOSINOPHILS # (AUTO) 0.1 X10'3 (0-0.9); EOSINOPHILS % (AUTO) 1.5 % (0-6); HEMATOCRIT 33.6 % (35.0-45.0); HEMOGLOBIN 10.9 g/dl (12.0-16.0); LYMPHOCYTES # (AUTO) 2.2 X10'3 (1.1-4.8); MEAN CORPUSCULAR HEMOGLOBIN 25.2 PG (27.0-31.0); MEAN CORPUSCULAR HGB CONC 32.6 g/dL (33.0-36.5); MEAN CORPUSCULAR VOLUME 77.2 FL (78-98); MONOCYTES # (AUTO) 0.6 X10'3 (0-0.9); MONOCYTES % (AUTO) 6.5 % (2-12); NEUTROPHILS # (AUTO) 6.6 X10'3 (1.8-7.7); NEUTROPHILS % (AUTO) 68.6 % (42-75); PLATELET COUNT 259 X10'3 (140-440); RED BLOOD COUNT 4.35 X10'6 (4.20-5.60); RED CELL DISTRIBUTION WIDTH 15.1 % (11.5-14.5); WHITE BLOOD COUNT 9.6 X10'3 (4.5-11.0)
[2023-02-21 06:52] LABS: ALANINE AMINOTRANSFERASE 29 U/L (12-78); ALBUMIN 2.6 G/DL (3.4-5.0); ALBUMIN/GLOBULIN RATIO 0.9 (1.1-1.5); ALKALINE PHOSPHATASE 106 IU/L (46-116); ANION GAP 7 (8-16); ASPARTATE AMINO TRANSFERASE 41 U/L (10-37); BILIRUBIN,TOTAL 0.3 MG/DL (0.1-1.0); BLOOD UREA NITROGEN 4 MG/DL (7-18); CALCIUM 7.9 MG/DL (8.5-10.1); CHLORIDE 106 MMOL/L (99-107); CREATININE 0.57 MG/DL (0.40-0.90); GLUCOSE 124 MG/DL (70-104); MAGNESIUM 1.8 MG/DL (1.5-2.4); POTASSIUM 3.4 MMOL/L (3.5-5.1); SODIUM 137 MMOL/L (135-145); TOTAL CARBON DIOXIDE 23.6 MMOL/L (24-32); TOTAL PROTEIN 5.4 G/DL (6.4-8.2); eGFR > 90 ML/MIN
[2023-02-21] MEDS: pantoprazole 40mg Tablet.DR PO SCH (07:25)
[2023-02-21] MEDS: venlafaxine XR 75mg capsule (Q24H) PO SCH (07:25)
[2023-02-21] MEDS: EMPAGLIFLOZIN 10 MG TABLET PO SCH (07:25)
[2023-02-21 10:00] VITALS: BP 117/80
--- NOTE | 2023-02-21 14:30 | NUR ---
I have reviewed & agree w/ interventions, assessments, and documentation by Araceli Ma LVN.
[2023-02-21] MEDS ORDERED: AMOX-117 PO (15:11)
--- NOTE | 2023-02-21 15:48 | NUR ---
Nutrition Consult: Pt w/ hx bariatric surgery requests RD input regarding vitamin/mineral supplementation. Pt seen by OTIS at bedside; pt reports hx betty-en-y gastric bypass takes "supplements" at home though not vitamins/minerals on home list in EMR. OTIS provided pt written vitamin/mineral supplementation guidelines per [facility] and encouraged pt to request dietitian if nutrition questions/concerns this admit. OTIS d/w [employer] and vitamin/mineral supplement recommendations this admit per [facility] guidelines. Addendum: 02/21/23 at [address] Amended: Links added.
--- NOTE | 2023-02-21 16:07 | NUR ---
Patient discharged home via POV, belongings taken with. PIV D/C'd, tip in tact. Work note sent with patient Per MD orders to return on . Patient alert and appropriate at time of discharge.
== END 2023-02-21 16:07 | disposition home or self-care (01) | DRG 392 ==
LOC: ER 15:27 → ED HOLD 20:17 → ORTHO 4S 22:14
PROVIDERS: ADMIT Internal Medicine; ATTEND Family Medicine
PROC: BW211ZZ Computerized Tomography (CT Scan) of Abdomen and Pelvis using Low Osmolar Contrast (ICD-10-PCS; principal; 2023-02-19)
DX: K59.00 Constipation, unspecified (principal); E11.22 Type 2 diabetes mellitus with diabetic chronic kidney disease; G89.29 Other chronic pain; J45.909 Unspecified asthma, uncomplicated; F12.90 Cannabis use, unspecified, uncomplicated; F32.A Depression, unspecified; K29.70 Gastritis, unspecified, without bleeding; F41.9 Anxiety disorder, unspecified; E87.6 Hypokalemia; D50.9 Iron deficiency anemia, unspecified; D72.829 Elevated white blood cell count, unspecified; M54.9 Dorsalgia, unspecified; N18.30 Chronic kidney disease, stage 3 unspecified; Z79.4 Long term (current) use of insulin; Z79.84 Long term (current) use of oral hypoglycemic drugs; Z87.442 Personal history of urinary calculi; Z98.84 Bariatric surgery status; Z88.8 Allergy status to other drugs, medicaments and biological substances; Z91.040 Latex allergy status; Z91.013 Allergy to seafood; Z90.49 Acquired absence of other specified parts of digestive tract; Z98.891 History of uterine scar from previous surgery; Z79.899 Other long term (current) drug therapy
CPT/HCPCS: 36415; 74018; 74176; 74177; 80053; 81001; 81025; 82948; 83605; 83690; 83735; 85025; 87040; 87081; 99285; C9113; G0378; J0696; J1650; J1815; J2270; J2405; J3490; J7030; Q9963; Q9967

== ENCOUNTER 2023-05-01 07:19 | Emergency (ER) | payer SELFPAY ==
[~2023-05-01] VITALS: Ht 160 cm; Wt 80.0 kg
[~2023-05-01 07:19] MED LIST changes: -ACET1TAB12 PO; -CHRO1TAB7 PO; -CLIN-97 PO; -CLOT15CR35 TOP; -COL100C PO; -CYCL-1 PO; +DULA3PEN SQ; +EMPA10TA PO; -FAMO40TA73 PO; +METF625T PO; -METO-292 PO; -ONDA4TAB12 PO; -OXYC5CAP19 PO; -PHEN-824 PO; +VENL150C4 PO; +ZOLP5TAB2 PO
[2023-05-01 07:38] VITALS: BP 111/80; PULSE 97; TEMP 97.5; O2SAT 100
[2023-05-01] MEDS ORDERED: TETanus/Pertussis (Acell)/Diphther VAC/PF (Tdap-Adult) 0.5ml syringe IMVAC ONE (09:00)
[2023-05-01] MEDS ORDERED: LIDOcaine 1% W/epiNEPHrine 1:100,000 20ml vial IJ ONE (09:00)
[2023-05-01] MEDS ORDERED: cephalexin 250mg capsule PO ONE (09:00)
[2023-05-01] MEDS ORDERED: LORazepam 1 MG tablet PO ONE (09:00)
[2023-05-01] MEDS ORDERED: HYDROcodone/acetaminophen 10/325mg tab PO ONE (09:00)
[2023-05-01 10:48] VITALS: RESP 19
[2023-05-01] MEDS ORDERED: cephalexin 500mg capsule PO ONE (12:45)
[2023-05-01] MEDS ORDERED: CEPH250T PO (12:45)
== END 2023-05-01 13:07 | disposition home or self-care (01) ==
LOC: ER 07:20
DX: H60.13 Cellulitis of external ear, bilateral (principal); H60.02 Abscess of left external ear; J45.909 Unspecified asthma, uncomplicated; E11.9 Type 2 diabetes mellitus without complications; G89.29 Other chronic pain; F12.90 Cannabis use, unspecified, uncomplicated; Z90.49 Acquired absence of other specified parts of digestive tract; Z98.891 History of uterine scar from previous surgery; Z98.84 Bariatric surgery status; Z87.442 Personal history of urinary calculi; Z88.8 Allergy status to other drugs, medicaments and biological substances; Z88.1 Allergy status to other antibiotic agents; Z91.040 Latex allergy status; Z91.013 Allergy to seafood; Z79.899 Other long term (current) drug therapy
CPT/HCPCS: 90471; 90715; 96372; 99284

== ENCOUNTER 2024-09-29 19:15 | Emergency (ER) | payer BC ==
[~2024-09-29] VITALS: Ht 160 cm; Wt 84.5 kg
[~2024-09-29 19:15] MED LIST changes: -VENL150C4 PO; +VENL150C5 PO
[2024-09-29 19:21] VITALS: BP 149/93
[2024-09-29] MEDS: ipratropium/albuterol 3ml nebule NEB ONE (20:14)
[2024-09-29 20:17] VITALS: PULSE 106; RESP 20; O2SAT 100
[2024-09-29] MEDS: normal saline 1000ml 1,000 ML IV ONE (20:18)
[2024-09-29 20:20] VITALS: PULSE 97; RESP 20; O2SAT 100
[2024-09-29 20:23] LABS: BASOPHILS # (AUTO) 0.1 X10'3 (0-0.2); BASOPHILS % (AUTO) 0.5 % (0-1); EOSINOPHILS # (AUTO) 0.1 X10'3 (0-0.9); EOSINOPHILS % (AUTO) 0.8 % (0-6); HEMATOCRIT 34.2 % (35.0-45.0); HEMOGLOBIN 10.4 g/dl (12.0-16.0); LYMPHOCYTES # (AUTO) 2.8 X10'3 (1.1-4.8); LYMPHOCYTES % (AUTO) 17.5 % (21-51); MEAN CORPUSCULAR HEMOGLOBIN 22.1 PG (27.0-31.0); MEAN CORPUSCULAR HGB CONC 30.6 g/dL (33.0-36.5); MEAN CORPUSCULAR VOLUME 72.2 FL (78-98); MEAN PLATELET VOLUME 8.4 FL (7.4-10.4); MONOCYTES # (AUTO) 1.2 X10'3 (0-0.9); MONOCYTES % (AUTO) 7.2 % (2-12); PLATELET COUNT 407 X10'3 (140-440); RED BLOOD COUNT 4.73 X10'6 (4.20-5.60); WHITE BLOOD COUNT 16.2 X10'3 (4.5-11.0)
[2024-09-29 20:33] LABS: D-DIMER 0.25 MG/L FEU (0-0.50)
[2024-09-29 20:41] LABS: ALANINE AMINOTRANSFERASE 28 U/L (12-78); ALBUMIN 3.1 G/DL (3.4-5.0); ALBUMIN/GLOBULIN RATIO 0.9 (1.1-1.5); ALKALINE PHOSPHATASE 157 IU/L (46-116); ANION GAP 11 (8-16); ASPARTATE AMINO TRANSFERASE 14 U/L (10-37); BILIRUBIN,TOTAL 0.2 MG/DL (0.1-1.0); BLOOD UREA NITROGEN 12 MG/DL (7-18); BUN/CREATININE RATIO 15.6 (10.0-20.0); CHLORIDE 103 MMOL/L (99-107); CREATININE 0.77 MG/DL (0.40-0.90); GLUCOSE 317 MG/DL (70-104); POTASSIUM 4.1 MMOL/L (3.5-5.1); SODIUM 136 MMOL/L (135-145); TOTAL PROTEIN 6.7 G/DL (6.4-8.2); eCRCL 80 ML/MIN; eGFR 83 ML/MIN
[2024-09-29] MEDS ORDERED: BENZ-38 PO (22:44)
[2024-09-29] MEDS ORDERED: ALBU8HFA INH (22:44)
[2024-09-29 23:13] VITALS: RESP 16; TEMP 97.9; O2SAT 100
== END 2024-09-29 23:15 | disposition home or self-care (01) ==
LOC: ER 19:16
DX: J22 Unspecified acute lower respiratory infection (principal); J45.901 Unspecified asthma with (acute) exacerbation; F12.90 Cannabis use, unspecified, uncomplicated; F41.9 Anxiety disorder, unspecified; E11.9 Type 2 diabetes mellitus without complications; G89.29 Other chronic pain; M54.9 Dorsalgia, unspecified; Z90.49 Acquired absence of other specified parts of digestive tract; Z90.89 Acquired absence of other organs; Z98.890 Other specified postprocedural states; Z87.442 Personal history of urinary calculi; Z88.1 Allergy status to other antibiotic agents; Z88.6 Allergy status to analgesic agent; Z88.8 Allergy status to other drugs, medicaments and biological substances; Z91.040 Latex allergy status; Z79.899 Other long term (current) drug therapy; Z91.018 Allergy to other foods
CPT/HCPCS: 36415; 71045; 80053; 84484; 85025; 85379; 87502; 87503; 94640; 96360; 96361; 99284; J7030; 94760